=== PATIENT | male | born 1955 | race Caucasian/White ===

== ENCOUNTER 2016-09-27 21:52 | Inpatient (IN) | payer OTHER ==
[2016-09-27 22:38] VITALS: BMI 31.4
--- NOTE | 2016-09-27 22:46 | HP ---
CIWA Score - CIWA Score Nausea/Vomitin Muscle Tremors: 3 Anxiety: 3 Agitation: 2 Paroxysmal Sweats: 1-Minimal Palms Moist Orientation: 0-Oriented Tacttile Disturbances: 2-Mild Itch/Numbness/Burn Auditory Disturbances: 2-Mild Harshness/Frighten Visual Disturbances: 2-Mild Sensitivity Headache: 2-Mild CIWA-Ar Total Score: 20 Admission ROS BHS - HPI Chief Complaint: i need help to stop drinking seen in [facility] today,refer for detox Allergies/Adverse Reactions: Allergies Allergy/AdvReac Type Severity Reaction Status Date / Time No Known Drug Allergies Allergy Verified 09/27/16 22:32 fish Allergy Severe Difficulty Uncoded 09/27/16 22:32 Breathing History of Present Illness: this 61 years old male with alcohol dependence,seen in [facility] today,refer for detox last detox 2015 [facility] several admissions in detox longest period of sobriety 10 years Exam Limitations: No Limitations - Ebola screening Have you traveled outside of the country in the last 21 days: No (N) Have you had contact with anyone from an Ebola affected area: No Do you have a fever: No - Review of Systems Constitutional: Loss of Appetite, Malaise, Night Sweats, Changes in sleep EENT: reports: Nose Congestion, Dental Problems Respiratory: reports: No Symptoms reported Cardiac: reports: Palpitations GI: reports: Diarrhea, Nausea, Vomiting, Indigestion : reports: No Symptoms Reported Musculoskeletal: reports: Back Pain, Muscle Pain Integumentary: reports: Dryness Neuro: reports: Headache, Tremors Endocrine: reports: No Symptoms Reported Hematology: reports: No Symptoms Reported Psychiatric: reports: Judgement Intact, Mood/Affect Appropiate, Orientated x3, other (bipolar disorder) Patient History - Patient Medical History Hx Anemia: No Hx Asthma: No Hx Chronic Obstructive Pulmonary Disease (COPD): No Hx Cancer: No Hx Cardiac Disorders: No Hx Congestive Heart Failure: No Hx Hypertension: Yes (on med) Hx Hypercholesterolemia: Yes (on med) Hx Pacemaker: No HX Cerebrovascular Accident: No Hx Seizures: Yes (last 2015) Hx Dementia: No Hx Diabetes: Yes (on med) Hx Gastrointestinal Disorders: Yes (gerd) Hx Liver Disease: No Hx Genitourinary Disorders: No Hx Sexually Transmitted Disorders: No Hx Renal Disease (ESRD): No Hx Thyroid Disease: No Hx Human Immunodeficiency Virus (HIV): No (last 2015) Hx Hepatitis C: No Hx Depression: No Hx Suicide Attempt: Yes (overdose) Hx Bipolar Disorder: Yes Hx Schizophrenia: No Other Medical History: no suicidal,no homicidal - Patient Surgical History Past Surgical History: No - PPD History Previous Implant?: Yes Documented Results: Positive w/o proof Implanted On Prior [facility] Admission?: No PPD to be Administered?: No - Smoking Cessation Smoking history: Current every day smoker Have you smoked in the past 12 months: Yes Aproximately how many cigarettes per day: 60 Cigars Per Day: 0 Hx Chewing Tobacco Use: No Initiated information on smoking cessation: Yes 'Breaking Loose' booklet given: 09/27/16 - Substance & Tx. History Hx Alcohol Use: Yes Hx Substance Use: Yes Substance Use Type: Alcohol, Marijuana Hx Substance Use Treatment: Yes (2015) - Substances Abused Alcohol Route: Oral Frequency: Daily Amount used: 1/5th of rum Age of first use: 11 Date of Last Use: 09/27/16 Marijuana/Hashish Route: Smoking Frequency: Daily Amount used: 40$ Age of first use: 11 Date of Last Use: 09/27/16 Family Disease History - Family Disease History Family Disease History: Other: Father (alcohol,) Admission Physical Exam S - Vital Signs Vital Signs: Vital Signs - 24 hr 09/27/16 22:34 Temperature 97.7 F Pulse Rate 103 H Respiratory 20 Rate Blood Pressure 108/69 - Physical General Appearance: Yes: Moderate Distress, Alcohol on Breath, Tremorous, Irritable, Sweating, Anxious HEENTM: Yes: Hearing grossly Normal, Normal ENT Inspection, SHANNAN, Pharynx Normal Respiratory: Yes: Lungs Clear, Normal Breath Sounds Neck: Yes: Within Normal Limits, Supple, Trachea in good position Breast: Yes: Within Normal Limits Cardiology: Yes: Within Normal Limits, Regular Rhythm, Regular Rate, S1, S2 Abdominal: Yes: Within Normal Limits, Normal Bowel Sounds, Non Tender, Flat, Soft Genitourinary: Yes: Within Normal Limits Back: Yes: Muscle Spasm Musculoskeletal: Yes: Back pain, Muscle Pain Extremities: Yes: Within Normal Limits, Normal Range of Motion, Tremors Neurological: Yes: shape carver II-XII NML intact, Fully Oriented, Alert, Motor Strength 5/5 Integumentary: Yes: Dry Lymphatic: Yes: Within Normal Limits - Diagnostic (1) Alcohol dependence with uncomplicated withdrawal Current Visit: Yes Status: Acute (2) Essential hypertension Current Visit: Yes Status: Acute (3) DM2 (diabetes mellitus, type 2) Current Visit: Yes Status: Acute (4) Hyperlipidemia Current Visit: Yes Status: Acute (5) GERD (gastroesophageal reflux disease) Current Visit: Yes Status: Acute (6) Bipolar disorder Current Visit: Yes Status: Acute (7) Nicotine dependence Current Visit: Yes Status: Acute (8) Positive PPD, treated Current Visit: Yes Status: Acute (9) Seizure Current Visit: Yes Status: Acute Cleared for Admission [facility] - Detox or Rehab [facility] Level of Care: Medically Managed Detox Regimen/Protocol: Librium S Breath Alcohol Content Breath Alcohol Content: 102 Urine Drug Screen - Results Drug Screen Negative: No Urine Drug Screen Results: THC-Marijuana, TCA-Tricyclic Antidepress, OXY- Oxycodone
[2016-09-27] MEDS ORDERED: MAGNESIUM CITRATE 300 ML BOTTLE PO PRN (23:01)
[2016-09-27] MEDS ORDERED: LOPERAMIDE HCL 2 MG CAPSULE PO PRN (23:01)
[2016-09-27] MEDS ORDERED: diphenhydrAMINE HCL 50 MG CAPSULE PO PRN (23:01)
[2016-09-27] MEDS ORDERED: hydrOXYzine PAMOATE 50 MG CAPSULE (FP) PO PRN (23:01)
[2016-09-27] MEDS ORDERED: P-EPHED 60MG/TRIPROLIDI 2.5MG TABLET PO PRN (23:01)
[2016-09-27] MEDS ORDERED: MAGNESIUM HYDROX 2400MG/30ML ORAL SUSPENSION 30 ML CUP PO PRN (23:01)
[2016-09-27] MEDS ORDERED: ACETAMINOPHEN 325 MG TABLET (FP) PO PRN (23:01)
[2016-09-27] MEDS ORDERED: MENTHOL/PHENOL 1 EACH UD MM PRN (23:01)
[2016-09-27] MEDS ORDERED: MAG HYDROX/AL HYDROX/SIMETH 30 ML UNIT-DOSE CUP PO PRN (23:01)
[2016-09-27] MEDS ORDERED: chlordiazePOXIDE HCL 25 MG CAPSULE PO ONE (23:01)
[2016-09-27] MEDS ORDERED: guaiFENesin/D-METHORPHAN HB 10 ML UNIT-DOSE CUPS PO PRN (23:01)
[2016-09-27] MEDS: chlordiazePOXIDE HCL 25 MG CAPSULE PO SCH (23:43)
[2016-09-28] MEDS: chlordiazePOXIDE HCL 25 MG CAPSULE PO SCH ×4 (05:25→22:42)
[2016-09-28] MEDS: NICOTINE POLACRILEX 4 MG GUM BC PRN ×7 (06:16→22:44)
[2016-09-28] MEDS ORDERED: metFORMIN HCL 500 MG TABLET (FP) PO ONE (07:00)
[2016-09-28] MEDS: ATENOLOL 50 MG TABLET (FP) PO SCH (08:01)
[2016-09-28] MEDS: HYDROCHLOROTHIAZIDE 25 MG TABLET (FP) PO SCH (08:01)
[2016-09-28] MEDS: ASPIRIN 81 MG CHEWABLE TABLETS PO SCH (08:01)
[2016-09-28 10:03] LABS: MCH 33.8 pg (25.7-33.7); MCHC 34.3 g/dl (32.0-35.9); MEAN CELL VOLUME 98.7 fl (80-96); MEAN PLT VOLUME 7.7 fl (7.5-11.1); PLATELET COUNT 157 K/MM3 (134-434); RDW 13.7 % (11.9-15.9); WHITE BLOOD COUNT 7.5 K/mm3 (4.0-10.0)
[2016-09-28 10:22] LABS: ALBUMIN 3.8 g/dl (3.4-5.0); ANION GAP 8 (8-16); CALCIUM 9.1 mg/dL (8.5-10.1); CO2 28 mmol/L (21-32); GLUCOSE,RANDOM 99 mg/dL (74-106); SGOT/AST 31 U/L (15-37); SGPT/ALT 30 U/L (12-78)
[2016-09-28 10:24] LABS: ALK PHOS 58 U/L (45-117); BILIRUBIN,TOTAL 1.1 mg/dL (0.2-1.0); COCKROFT - GAULT 94.49; CREATININE 1.2 mg/dL (0.7-1.3); TOT PROT 7.3 g/dl (6.4-8.2)
[2016-09-28] MEDS: PANTOPRAZOLE 40 MG TABLET (FP) PO SCH (10:30)
[2016-09-28] MEDS: GEMFIBROZIL 600 MG TABLET (FP) PO SCH ×2 (10:34→22:42)
[2016-09-28] MEDS: LISINOPRIL 20 MG TABLET (FP) PO SCH (10:34)
[2016-09-28] MEDS: PRENATAL VITAMINS W/ FOLIC ACID TABLET (FP) PO SCH (10:34)
[2016-09-28] MEDS: NICOTINE 21 MG/24 HOURS TOPICAL PATCH TD SCH (10:35)
--- NOTE | 2016-09-28 10:42 | CONSULT ---
[facility] Psychiatric Consult - Data Date of interview: 09/28/16 Admission source: [facility] Identifying data: This is 61 years old male with psychiatric hospitalization history intoxicated with. Alcohol, Cannabis and Nicotine Substance Abuse History: - Smoking Cessation. Smoking history: Current every day smoker. Have you smoked in the past 12 months: Yes. Aproximately how many cigarettes per day: 60. Cigars Per Day: 0. Hx Chewing Tobacco Use: No. Initiated information on smoking cessation: Yes. 'Breaking Loose' booklet given : 09/27/16. - Substance & Tx. History. Hx Alcohol Use: Yes. Hx Substance Use : Yes. Substance Use Type: Alcohol, Marijuana. Hx Substance Use Treatment: Yes (2015 [facility]). - Substances Abused. Alcohol. Route: Oral. Frequency: Daily. Amount used: 1/5th of rum. Age of first use: 11. Date of Last Use: 09/27/16. Marijuana/Hashish. Route: Smoking. Frequency: Daily. Amount used: 40$. Age of first use: 11. Date of Last Use: 09/27/16 Medical History: DM-2, HTN, GERD, Hyperlipidemia, Hisotry of PPD+, Seizure history Psychiatric History: Patient reports history of mBipolar dsiorder with most recent psychiatric admission on [facility] 5 years ago aftre suicdal attempt, reports no suicidal history since then, currently on Trazodone 200mg po qhs Physical/Sexual Abuse/Trauma History: Denies Additional Comment: Trazodone 200mg po qhs Mental Status Exam - Mental Status Exam Alert and Oriented to: Person Cognitive Function: Fair Patient Appearance: Unkempt Mood: Sad Affect: Flat Patient Behavior: Sedated Speech Pattern: Delayed Voice Loudness: Mildly Soft/Quiet Thought Process: Circumstantial Thought Disorder: Being Controlled Hallucinations: Denies Suicidal Ideation: Denies Homicidal Ideation: Denies Insight/Judgement: Fair Sleep: Difficulty falling asleep Appetite: Fair Muscle strength/Tone: Normal Gait/Station: Normal Additional Comments: Trazodone 200mg po qhs Psychiatric Findings - Problem List ([place] 1, 2,3) (1) Alcohol dependence with uncomplicated withdrawal Current Visit: Yes Status: Acute (2) Bipolar disorder Current Visit: Yes Status: Acute (3) Nicotine dependence Current Visit: Yes Status: Acute (4) Seizure Current Visit: Yes Status: Acute (5) Cannabis dependence Current Visit: Yes Status: Acute - Initial Treatment Plan Initial Treatment Plan: Trazodone 200mg po qhs
[2016-09-28] MEDS: FLUTICASONE PROP 0.05% 16 GM NASAL SPRAY NS SCH ×2 (11:00→22:44)
[2016-09-28] MEDS ORDERED: metFORMIN HCL 500 MG TABLET (FP) PO SCH (11:17)
[2016-09-28 11:23] LABS: SICKLE CELL SCREEN NEGATIVE (NEGATIVE)
--- NOTE | 2016-09-28 11:32 | PN ---
S CIWA - CIWA Score Nausea/Vomitin Muscle Tremors: 4-Moderate,w/Arms Extend Anxiety: 3 Agitation: 2 Paroxysmal Sweats: 2 Orientation: 0-Oriented Tacttile Disturbances: 2-Mild Itch/Numbness/Burn Auditory Disturbances: 0-None Visual Disturbances: 0-None Headache: 0-None Present CIWA-Ar Total Score: 15 BHS Progress Note (SOAP) Subjective: interrrupted sleep, sweats, painful hands ,allergies Objective: 09/28/16 11:29 Vital Signs Temperature 97.7 F 09/28/16 09:54 Pulse Rate 88 09/28/16 09:54 Respiratory Rate 18 09/28/16 09:54 Blood Pressure 135/72 09/28/16 09:54 O2 Sat by Pulse Oximetry (%) Vital Signs Temperature 97.7 F 09/28/16 09:54 Pulse Rate 88 09/28/16 09:54 Respiratory Rate 18 09/28/16 09:54 Blood Pressure 135/72 09/28/16 09:54 O2 Sat by Pulse Oximetry (%) Laboratory Tests 09/27/16 09/28/16 09/28/16 22:17 05:27 07:00 WBC 7.5 RBC 4.31 Hgb 14.6 Hct 42.5 MCV 98.7 H MCHC 34.3 RDW 13.7 Plt Count 157 MPV 7.7 Sickle Cell Screen Negative Sodium Potassium Chloride Carbon Dioxide Anion Gap BUN Creatinine Creat Clearance w eGFR POC Glucometer 174 91 Random Glucose Calcium Total Bilirubin AST ALT Alkaline Phosphatase Total Protein Albumin RPR Titer 09/28/16 09/28/16 07:00 07:00 WBC RBC Hgb Hct MCV MCHC RDW Plt Count MPV Sickle Cell Screen Sodium 137 Potassium 4.2 Chloride 101 Carbon Dioxide 28 Anion Gap 8 BUN 29 H Creatinine 1.2 Creat Clearance w eGFR > 60 POC Glucometer Random Glucose 99 Calcium 9.1 Total Bilirubin 1.1 H AST 31 ALT 30 Alkaline Phosphatase 58 Total Protein 7.3 Albumin 3.8 RPR Titer Nonreactive pt aox3 in nad ambulating + tremor 09/28/16 11:31 Assessment: 09/28/16 11:30 withdrawal sx;s allergies arthritis Plan: cont detox increase fluids clarintin 10mg /d flonase nasal spray
[2016-09-28 11:35] LABS: HIV 1 & 2 AB NEGATIVE; HIV 1 AGp24 NEGATIVE
[2016-09-28] MEDS: metFORMIN HCL 500 MG TABLET (FP) PO SCH (17:29)
[2016-09-28] MEDS: traZODone HCL 100 MG TABLET (FP) PO SCH (22:41)
[2016-09-28] MEDS: THIAMINE HCL 100 MG TABLET (FP) PO SCH (22:41)
[2016-09-28] MEDS: ATORVASTATIN CA 10 MG TABLET (FP) PO SCH (22:42)
[2016-09-29] MEDS: chlordiazePOXIDE HCL 25 MG CAPSULE PO PRN (01:31)
[2016-09-29] MEDS: chlordiazePOXIDE HCL 25 MG CAPSULE PO SCH ×3 (05:09→17:20)
[2016-09-29] MEDS: NICOTINE POLACRILEX 4 MG GUM BC PRN ×6 (05:15→23:26)
[2016-09-29] MEDS: IBUPROFEN 400 MG TABLET (FP) PO PRN (05:15)
[2016-09-29] MEDS: metFORMIN HCL 500 MG TABLET (FP) PO SCH ×2 (07:17→17:20)
[2016-09-29] MEDS: ASPIRIN 81 MG CHEWABLE TABLETS PO SCH (07:17)
[2016-09-29] MEDS: ATENOLOL 50 MG TABLET (FP) PO SCH (07:18)
[2016-09-29] MEDS: HYDROCHLOROTHIAZIDE 25 MG TABLET (FP) PO SCH (07:18)
[2016-09-29] MEDS: FLUTICASONE PROP 0.05% 16 GM NASAL SPRAY NS SCH ×2 (09:47→22:25)
[2016-09-29] MEDS ORDERED: LORATADINE 10 MG TABLET PO SCH (10:00)
[2016-09-29] MEDS: PANTOPRAZOLE 40 MG TABLET (FP) PO SCH (11:03)
[2016-09-29] MEDS: PRENATAL VITAMINS W/ FOLIC ACID TABLET (FP) PO SCH (11:03)
[2016-09-29] MEDS: GEMFIBROZIL 600 MG TABLET (FP) PO SCH ×2 (11:03→22:26)
[2016-09-29] MEDS: LISINOPRIL 20 MG TABLET (FP) PO SCH (11:03)
[2016-09-29] MEDS: NICOTINE 21 MG/24 HOURS TOPICAL PATCH TD SCH (11:04)
--- NOTE | 2016-09-29 11:23 | EKG ---
Test Reason : Blood Pressure : / mmHG Vent. Rate : 087 BPM Atrial Rate : 087 BPM P-R Int : 152 ms QRS Dur : 086 ms QT Int : 372 ms P-R-T Axes : 073 062 070 degrees QTc Int : 447 ms NORMAL SINUS RHYTHM NONSPECIFIC ST ABNORMALITY ABNORMAL ECG NO PREVIOUS ECGS AVAILABLE CLINICAL CORRELATION IS RECOMMENDED BASELINE ARTIFACT Confirmed by ISAAC MAN, ELIZABETH ([id number]) on 09/29/2016 11:23:13 AM Referred By: Confirmed By:ELIZABETH GRAY MD
--- NOTE | 2016-09-29 11:40 | PN ---
S CIWA - CIWA Score Nausea/Vomitin-No Nausea/No Vomiting Muscle Tremors: 3 Anxiety: 3 Agitation: 4-Moderately Restless Paroxysmal Sweats: 2 Orientation: 0-Oriented Tacttile Disturbances: 0-None Auditory Disturbances: 0-None Visual Disturbances: 0-None Headache: 0-None Present CIWA-Ar Total Score: 12 BHS Progress Note (SOAP) Subjective: mild shakes sweats dry itchy skin Objective: 09/29/16 11:39 Vital Signs Temperature 97.9 F 09/29/16 11:00 Pulse Rate 78 09/29/16 11:00 Respiratory Rate 16 09/29/16 11:00 Blood Pressure 102/59 09/29/16 11:00 O2 Sat by Pulse Oximetry (%) Laboratory Tests 09/27/16 09/28/16 09/28/16 22:17 05:27 07:00 WBC 7.5 RBC 4.31 Hgb 14.6 Hct 42.5 MCV 98.7 H MCHC 34.3 RDW 13.7 Plt Count 157 MPV 7.7 Sickle Cell Screen Negative Sodium Potassium Chloride Carbon Dioxide Anion Gap BUN Creatinine Creat Clearance w eGFR POC Glucometer 174 91 Random Glucose Calcium Total Bilirubin AST ALT Alkaline Phosphatase Total Protein Albumin RPR Titer HIV 1&2 Antibody Screen HIV P24 Antigen 09/28/16 09/28/16 09/28/16 07:00 07:00 07:00 WBC RBC Hgb Hct MCV MCHC RDW Plt Count MPV Sickle Cell Screen Sodium 137 Potassium 4.2 Chloride 101 Carbon Dioxide 28 Anion Gap 8 BUN 29 H Creatinine 1.2 Creat Clearance w eGFR > 60 POC Glucometer Random Glucose 99 Calcium 9.1 Total Bilirubin 1.1 H AST 31 ALT 30 Alkaline Phosphatase 58 Total Protein 7.3 Albumin 3.8 RPR Titer Nonreactive HIV 1&2 Antibody Screen Negative HIV P24 Antigen Negative 09/28/16 09/29/16 16:31 05:09 WBC RBC Hgb Hct MCV MCHC RDW Plt Count MPV Sickle Cell Screen Sodium Potassium Chloride Carbon Dioxide Anion Gap BUN Creatinine Creat Clearance w eGFR POC Glucometer 126 115 Random Glucose Calcium Total Bilirubin AST ALT Alkaline Phosphatase Total Protein Albumin RPR Titer HIV 1&2 Antibody Screen HIV P24 Antigen awake/alert ambulating no acute distress Assessment: 09/29/16 11:40 withdrawal sx Plan: continue detox increase fluids benadryl 25mg bid
[2016-09-29] MEDS: diphenhydrAMINE HCL 25 MG CAPSULE (FP) PO SCH ×2 (12:45→22:25)
[2016-09-29 14:19] LABS: URINE APPEARANCE CLEAR; URINE BILIRUBIN NEGATIVE (NEGATIVE); URINE BLOOD NEGATIVE (NEGATIVE); URINE COLOR DKYELLOW; URINE GLUCOSE (UA) NEGATIVE (NEGATIVE); URINE KETONE NEGATIVE (NEGATIVE); URINE LEUK ESTERASE NEGATIVE (NEGATIVE); URINE NITRITE NEGATIVE (NEGATIVE); URINE UROBILINOGEN 2.0 E.U/dl E.U./dl (0.2-1.0)
[2016-09-29 14:44] LABS: URINE PROTEIN 2+ (NEGATIVE)
[2016-09-29 14:58] LABS: URINE BACTERIA RARE /hpf (NONE SEEN); URINE HYALINE CAST 5 /lpf; URINE MUCUS RARE; URINE WBC 2 /hpf (3-5)
[2016-09-29 15:09] LABS: URINE RBC <1 /hpf (0-3)
[2016-09-29] MEDS: traZODone HCL 100 MG TABLET (FP) PO SCH (22:26)
[2016-09-29] MEDS: THIAMINE HCL 100 MG TABLET (FP) PO SCH (22:26)
[2016-09-29] MEDS: ATORVASTATIN CA 10 MG TABLET (FP) PO SCH (22:26)
[2016-09-29] MEDS: chlordiazePOXIDE 5 MG CAPSULE PO SCH (22:28)
[2016-09-30] MEDS: IBUPROFEN 400 MG TABLET (FP) PO PRN (00:30)
[2016-09-30] MEDS: chlordiazePOXIDE HCL 25 MG CAPSULE PO PRN (00:30)
[2016-09-30] MEDS: chlordiazePOXIDE 5 MG CAPSULE PO SCH (06:09)
[2016-09-30] MEDS: metFORMIN HCL 500 MG TABLET (FP) PO SCH (06:11)
[2016-09-30] MEDS: ASPIRIN 81 MG CHEWABLE TABLETS PO SCH (06:11)
[2016-09-30] MEDS: ATENOLOL 50 MG TABLET (FP) PO SCH (06:11)
[2016-09-30] MEDS: HYDROCHLOROTHIAZIDE 25 MG TABLET (FP) PO SCH (06:11)
[2016-09-30] MEDS: NICOTINE POLACRILEX 4 MG GUM BC PRN (06:48)
--- NOTE | 2016-09-30 08:39 | DS ---
[facility] Detox Discharge Summary Admission Date: 09/27/16 Discharge Date: 09/30/16 - History Present History: Alcohol Dependence, Cannabis Dependence - Physical Exam Results Vital Signs: Vital Signs Temperature 97.5 F L 09/30/16 06:00 Pulse Rate 85 09/30/16 06:00 Respiratory Rate 20 09/30/16 06:00 Blood Pressure 94/72 09/30/16 06:00 O2 Sat by Pulse Oximetry (%) - Treatment Hospital Course: Detox Protocol Followed, Detoxed Safely, Responded well, Discharged Condition Good - Medication Discharge Medications: Ambulatory Orders Aspirin [Ivelisse Chewable] 81 mg PO AM 09/27/16 Atenolol [Tenormin] 50 mg PO AM 09/27/16 Atorvastatin Ca [Lipitor] 20 mg PO HS 09/27/16 Fluticasone Prop 0.05% Nasal [Flonase -] 1 - 2 spray NS BID 09/27/16 Gemfibrozil [Lopid -] 600 mg PO BID 09/27/16 Hydrochlorothiazide 25 mg PO AM 09/27/16 Liraglutide [Victoza -] 1.8 mg SQ DAILY@0700 09/27/16 Lisinopril [Prinivil] 20 mg PO DAILY 09/27/16 Metformin HCl [Glucophage] 1,000 mg PO BID 09/27/16 Omeprazole 20 mg PO AM 09/27/16 Oxycodone HCl 10 mg PO QID 09/27/16 Trazodone HCl [Desyrel -] 100 mg PO HS 09/27/16 Triamcinolone 0.1% Lotion [Aristocort 0.1% Lotion -] 1 each .ROUTE ASDIR Trazodone HCl [Desyrel -] 200 mg PO HS #30 tablet 09/28/16 - Diagnosis (1) Alcohol dependence with uncomplicated withdrawal Current Visit: Yes Status: Chronic (2) Bipolar disorder Current Visit: Yes Status: Chronic Qualifiers: Current episode severity: unspecified (3) Cannabis dependence Current Visit: Yes Status: Acute (4) DM2 (diabetes mellitus, type 2) Current Visit: Yes Status: Chronic (5) Essential hypertension Current Visit: Yes Status: Chronic (6) GERD (gastroesophageal reflux disease) Current Visit: Yes Status: Chronic Qualifiers: Esophagitis presence: without esophagitis Qualified Code(s): K21.9 - Gastro-esophageal reflux disease without esophagitis (7) Hyperlipidemia Current Visit: Yes Status: Chronic Qualifiers: Hyperlipidemia type: unspecified Qualified Code(s): E78.5 - Hyperlipidemia, unspecified (8) Nicotine dependence Current Visit: Yes Status: Chronic Qualifiers: Nicotine product type: cigarettes Substance use status: uncomplicated Qualified Code(s): F17.210 - Nicotine dependence, cigarettes, uncomplicated - AMA Did Patient Leave Against Medical Advice: No (pt given early d/c for work related reasons )
[2016-09-30 10:47] VITALS: BP 110/56; PULSE 72; TEMP 97.7
[2016-09-30] MEDS ORDERED: chlordiazePOXIDE HCL 10 MG CAPSULE PO SCH (23:00)
== END 2016-09-30 09:01 | disposition home or self-care (01) | DRG 897 ==
LOC: YASAS 21:52 → Y6N 22:23
PROVIDERS: ADMIT Internal Medicine; ATTEND Internal Medicine
PROC: HZ2ZZZZ Detoxification Services for Substance Abuse Treatment (ICD-10-PCS; principal; 2016-09-27)
DX: F10.230 Alcohol dependence with withdrawal, uncomplicated (principal); F12.20 Cannabis dependence, uncomplicated; F17.210 Nicotine dependence, cigarettes, uncomplicated; F31.9 Bipolar disorder, unspecified; I10 Essential (primary) hypertension; E11.9 Type 2 diabetes mellitus without complications; E78.5 Hyperlipidemia, unspecified; K21.9 Gastro-esophageal reflux disease without esophagitis; M19.90 Unspecified osteoarthritis, unspecified site; Z86.69 Personal history of other diseases of the nervous system and sense organs
CPT/HCPCS: 36415; 71010-TC; 80053; 81003; 81015; 85027; 85660; 86593; 87389; 93005; 93010